=== PATIENT | female | born 1985 | race Caucasian/White ===

== ENCOUNTER 2016-03-13 16:48 | Emergency (ER) | payer OTHER ==
[~2016-03-13] VITALS: Ht 177.8 cm; Wt 71.2 kg
[~2016-03-13 16:48] MED LIST: CEPHALEXIN; CYCLOBENZAPRINE10 MG PO; FLEXERIL PO; IBUPROFEN 800800 M1 PO; NORCO 5-325 TA1 EACH PO; TRAMADOL
[2016-03-13 16:57] VITALS: BP 133/89
[2016-03-13 17:12] LABS: URINE BILIRUBIN NEGATIVE (Negative); URINE BLOOD 3+ (Negative); URINE COLOR DARK YELLOW; URINE GLUCOSE-RANDOM* NEGATIVE (Negative); URINE KETONES NEGATIVE (Negative); URINE LEUKOCYTES-REFLEX 2+ (Negative); URINE PROTEIN (DIPSTICK) 2+ (Negative); URINE SPECIFIC GRAVITY 1.015 (1.003-1.035)
[2016-03-13] MEDS ORDERED: KEFLEX500 MG PO (17:26)
[2016-03-13 17:31] LABS: CASTS None Seen /LPF (None Seen); SQUAMOUS 0-3 Few /LPF (0-3); URINE RBC >20 Many /HPF (0-2)
[2016-03-13 17:32] LABS: AMORPHOUS PHOSPHATES Moderate /LPF (None Seen); YEAST-REFLEX Present (None Seen)
== END 2016-03-13 17:33 | disposition home or self-care (01) ==
LOC: ER 16:48
PROVIDERS: Physician Assistant
DX: N39.0 Urinary tract infection, site not specified (principal); Z90.89 Acquired absence of other organs